=== PATIENT | male | born 1940 | race Two or more races ===

== ENCOUNTER 2022-12-22 10:10 | Outpatient (CLI) | payer OTHER | END 2022-12-22 10:17 | disposition home or self-care (01) | LOC: NUCLEAR 10:10 → EDBD 10:10 → NUCLEAR 10:17 | PROVIDERS: ATTEND Internal Medicine Cardiovascular Disease | DX: I25.10 Atherosclerotic heart disease of native coronary artery without angina pectoris (principal) ==

== ENCOUNTER 2022-12-25 07:10 | Outpatient (CLI) | payer OTHER | END 2022-12-25 07:12 | disposition home or self-care (01) | LOC: EDBD 07:10 → NUCLEAR 07:10 | PROVIDERS: ATTEND Internal Medicine Cardiovascular Disease | DX: I25.10 Atherosclerotic heart disease of native coronary artery without angina pectoris (principal) | CPT/HCPCS: 78452; 93017; A9500; J0153 ==